=== PATIENT | male | born 1945 | race Caucasian/White ===

== ENCOUNTER 2018-04-16 14:19 | Inpatient (IN) | payer MEDICARE, OTHER ==
[2018-04-16 14:32] LABS: ADD MAN DIFF? NO
[2018-04-16 14:39] LABS: BASOPHILS % 0.4 % (0.0-2.0); EOSINOPHILS # 0.1 10^3/ul (0.0-0.5); HEMATOCRIT 37.2 % (42.0-52.0); HEMOGLOBIN 12.1 g/dl (14.0-18.0); LYMPHOCYTES # 0.8 10^3/ul (0.8-2.9); LYMPHOCYTES % 16.1 % (15.0-51.0); MEAN CORPUSCULAR HEMOGLOBIN 29.9 pg (29.0-33.0); MEAN CORPUSCULAR HGB CONC 32.5 g/dl (32.0-37.0); MEAN CORPUSCULAR VOLUME 91.9 fl (82.0-101.0); MEAN PLATELET VOLUME 10.4 fl (7.4-10.4); MONOCYTE # 0.4 10^3/ul (0.3-0.9); MONOCYTES % 7.8 % (0.0-11.0); NEUTROPHIL # 3.8 10^3/ul (1.6-7.5); NEUTROPHILS % 74.1 % (39.0-77.0); PLATELET COUNT 141 10^3/UL (140-415); RED BLOOD COUNT 4.05 10^6/ul (4.70-6.10); RED CELL DISTRIBUTION WIDTH 13.5 % (11.5-14.5)
[2018-04-16 14:39] LABS: WHITE BLOOD COUNT 5.1 10^3/ul (4.8-10.8)
[2018-04-16 14:59] LABS: ALANINE AMINOTRANSFERASE 24 IU/L (13-69); ALBUMIN 4.6 g/dl (3.3-4.9); ALBUMIN/GLOBULIN RATIO 1.43; ALKALINE PHOSPHATASE 91 IU/L (42-121); ANION GAP 17 (8-16); ASPARTATE AMINO TRANSFERASE 22 IU/L (15-46); BILIRUBIN,INDIRECT 1.5 mg/dl (0-1.1); BILIRUBIN,TOTAL 1.5 mg/dl (0.2-1.3); BLOOD UREA NITROGEN 18 mg/dl (7-20); CALCIUM 9.7 mg/dl (8.4-10.2); CARBON DIOXIDE 25 mmol/L (21-31); CHLORIDE 99 mmol/L (97-110); CREATININE 0.94 mg/dl (0.61-1.24); GLUCOSE 106 mg/dl (70-220); LIPASE 40 U/L (23-300); POTASSIUM 4.6 mmol/L (3.5-5.1); SODIUM 136 mmol/L (135-144); TOTAL PROTEIN 7.8 g/dl (6.1-8.1)
[2018-04-16] MEDS: ASPIRIN 81 MG TAB PO (14:59)
[2018-04-16 15:00] LABS: INR 0.94; PROTIME 12.7 Sec (11.9-14.9)
[2018-04-16 15:01] LABS: PARTIAL THROMBOPLASTIN TIME 28.6 Sec (25.0-35.0)
[2018-04-16 15:10] LABS: B-TYPE NATRIURETIC PEPTIDE 3990 PG/ML (0-125); TROPONIN-I < 0.010 ng/ml (0.000-0.120)
[2018-04-16] MEDS: FUROSEMIDE 40 MG INJ IV ×2 (16:26→21:00)
[2018-04-16] MEDS: OXYCODONE/ACETAMINOPHEN (5/325) TAB PO (16:27)
[2018-04-16] MEDS ORDERED: NACL 0.9% 3 ML SYG IV (19:00)
[2018-04-16] MEDS ORDERED: DOCUSATE SODIUM 100 MG CAP PO (19:00)
[2018-04-16] MEDS ORDERED: MAGNESIUM HYDROXIDE 30ML CUP PO (19:00)
[2018-04-16] MEDS ORDERED: ONDANSETRON 4 MG INJ IV (19:00)
[2018-04-16] MEDS: oxyCODONE 15 MG TAB PO (20:37)
[2018-04-16] MEDS: CARBIDOPA/LEVODOPA (25/100) TAB PO (20:38)
[2018-04-16] MEDS: MAGNESIUM OXIDE 400 MG TAB PO (20:38)
[2018-04-16] MEDS: NITROGLYCERIN (SL) 0.4 MG TAB SL (20:50)
[2018-04-16] MEDS: morphine 2 MG INJ IV (21:01)
[2018-04-16] MEDS: LORAZEPAM 2 MG INJ IV (22:50)
[2018-04-17] MEDS: morphine 2 MG INJ IV ×4 (00:53→14:31)
[2018-04-17 01:53] LABS: TROPONIN-I < 0.010 ng/ml (0.000-0.120)
[2018-04-17] MEDS: oxyCODONE 15 MG TAB PO ×4 (02:41→22:08)
[2018-04-17] MEDS: PANTOPRAZOLE (EC) 40 MG TAB PO (06:28)
[2018-04-17] MEDS: FUROSEMIDE 40 MG INJ IV ×2 (06:30→17:52)
[2018-04-17] MEDS ORDERED: PANTOPRAZOLE (EC) 40 MG TAB PO (07:00)
[2018-04-17] MEDS: FERROUS SULFATE (EC) 325 MG TAB PO (09:02)
[2018-04-17] MEDS: MAGNESIUM OXIDE 400 MG TAB PO ×2 (09:02→20:33)
[2018-04-17] MEDS: CARBIDOPA/LEVODOPA (25/100) TAB PO ×3 (09:02→20:33)
[2018-04-17] MEDS: ESCITALOPRAM 10 MG TAB PO (09:03)
[2018-04-17] MEDS: METOPROLOL (XL) 25 MG TAB PO (09:03)
[2018-04-17] MEDS: ENOXAPARIN 40 MG/0.4 ML SYG SC (09:10)
[2018-04-17 09:18] LABS: ADD MAN DIFF? NO
[2018-04-17 09:21] LABS: WHITE BLOOD COUNT 4.4 10^3/ul (4.8-10.8)
[2018-04-17 09:21] LABS: BASOPHILS % 0.7 % (0.0-2.0); EOSINOPHILS # 0.1 10^3/ul (0.0-0.5); EOSINOPHILS % 2.7 % (0.0-7.0); HEMATOCRIT 36.9 % (42.0-52.0); HEMOGLOBIN 11.9 g/dl (14.0-18.0); LYMPHOCYTES # 1.3 10^3/ul (0.8-2.9); LYMPHOCYTES % 28.9 % (15.0-51.0); MEAN CORPUSCULAR HEMOGLOBIN 29.5 pg (29.0-33.0); MEAN CORPUSCULAR HGB CONC 32.2 g/dl (32.0-37.0); MEAN CORPUSCULAR VOLUME 91.3 fl (82.0-101.0); MEAN PLATELET VOLUME 10.8 fl (7.4-10.4); MONOCYTE # 0.6 10^3/ul (0.3-0.9); NEUTROPHIL # 2.4 10^3/ul (1.6-7.5); NEUTROPHILS % 54.2 % (39.0-77.0); PLATELET COUNT 143 10^3/UL (140-415); RED BLOOD COUNT 4.04 10^6/ul (4.70-6.10); RED CELL DISTRIBUTION WIDTH 13.5 % (11.5-14.5)
[2018-04-17 09:46] LABS: ALANINE AMINOTRANSFERASE 18 IU/L (13-69); ALBUMIN 4.6 g/dl (3.3-4.9); ALBUMIN/GLOBULIN RATIO 1.76; ALKALINE PHOSPHATASE 81 IU/L (42-121); ANION GAP 13 (8-16); ASPARTATE AMINO TRANSFERASE 20 IU/L (15-46); BILIRUBIN,INDIRECT 1.3 mg/dl (0-1.1); BILIRUBIN,TOTAL 1.3 mg/dl (0.2-1.3); BLOOD UREA NITROGEN 19 mg/dl (7-20); CALCIUM 9.7 mg/dl (8.4-10.2); CARBON DIOXIDE 31 mmol/L (21-31); CHLORIDE 98 mmol/L (97-110); CREATININE 0.96 mg/dl (0.61-1.24); GLUCOSE 90 mg/dl (70-220); POTASSIUM 4.3 mmol/L (3.5-5.1); SODIUM 138 mmol/L (135-144); TOTAL PROTEIN 7.2 g/dl (6.1-8.1)
[2018-04-17 09:51] LABS: HEMOGLOBIN A1C 5.4 % (0-5.9)
[2018-04-17 09:56] LABS: TROPONIN-I < 0.010 ng/ml (0.000-0.120)
[2018-04-17] MEDS: POTASSIUM CHLORIDE (SR) 10 MEQ TAB PO (12:21)
[2018-04-17] MEDS: NITROGLYCERIN (SL) 0.4 MG TAB SL (12:55)
[2018-04-17] MEDS: morphine LIQ (10 MG/5 ML) CUP PO ×2 (18:27→20:33)
[2018-04-17] MEDS: ZOLPIDEM 5 MG TAB PO (22:07)
[2018-04-18] MEDS: LORAZEPAM 2 MG INJ IV ×2 (01:31→22:36)
[2018-04-18] MEDS: oxyCODONE 15 MG TAB PO ×3 (05:05→18:08)
[2018-04-18] MEDS: PANTOPRAZOLE (EC) 40 MG TAB PO (05:30)
[2018-04-18] MEDS: FUROSEMIDE 40 MG INJ IV ×2 (05:31→18:00)
[2018-04-18] MEDS: ESCITALOPRAM 10 MG TAB PO (08:26)
[2018-04-18] MEDS: FERROUS SULFATE (EC) 325 MG TAB PO (08:26)
[2018-04-18] MEDS: CARBIDOPA/LEVODOPA (25/100) TAB PO ×3 (08:26→20:22)
[2018-04-18] MEDS: morphine LIQ (10 MG/5 ML) CUP PO ×5 (08:26→21:11)
[2018-04-18] MEDS: MAGNESIUM OXIDE 400 MG TAB PO ×2 (08:26→20:22)
[2018-04-18] MEDS: POTASSIUM CHLORIDE (SR) 10 MEQ TAB PO (08:27)
[2018-04-18] MEDS: METOPROLOL (XL) 25 MG TAB PO (08:28)
[2018-04-18] MEDS: ENOXAPARIN 40 MG/0.4 ML SYG SC (08:33)
[2018-04-18] MEDS: NITROGLYCERIN (SL) 0.4 MG TAB SL ×2 (14:09→21:40)
[2018-04-18] MEDS: ASPIRIN 81 MG TAB PO (15:48)
[2018-04-19] MEDS: oxyCODONE 15 MG TAB PO ×3 (00:27→14:03)
[2018-04-19] MEDS: ZOLPIDEM 5 MG TAB PO (01:48)
[2018-04-19] MEDS: PANTOPRAZOLE (EC) 40 MG TAB PO (05:37)
[2018-04-19] MEDS: FUROSEMIDE 40 MG INJ IV (06:00)
[2018-04-19] MEDS: morphine LIQ (10 MG/5 ML) CUP PO ×3 (06:06→15:28)
[2018-04-19] MEDS: ACETAMINOPHEN 325 MG TAB PO ×2 (06:20→12:23)
[2018-04-19] MEDS: MAGNESIUM OXIDE 400 MG TAB PO (09:02)
[2018-04-19] MEDS: ESCITALOPRAM 10 MG TAB PO (09:02)
[2018-04-19] MEDS: FERROUS SULFATE (EC) 325 MG TAB PO (09:03)
[2018-04-19] MEDS: ASPIRIN 81 MG TAB PO (09:03)
[2018-04-19] MEDS: POTASSIUM CHLORIDE (SR) 10 MEQ TAB PO (09:03)
[2018-04-19] MEDS: CARBIDOPA/LEVODOPA (25/100) TAB PO ×2 (09:03→14:05)
[2018-04-19] MEDS: ENOXAPARIN 40 MG/0.4 ML SYG SC (09:03)
[2018-04-19] MEDS: METOPROLOL (XL) 25 MG TAB PO (09:03)
== END 2018-04-19 17:45 | DRG 313 ==
LOC: E/R 14:19 → TEL 17:38
DX: R07.89 Other chest pain (principal); I50.31 Acute diastolic (congestive) heart failure; I11.0 Hypertensive heart disease with heart failure; I25.2 Old myocardial infarction; Z95.5 Presence of coronary angioplasty implant and graft; Z95.1 Presence of aortocoronary bypass graft; G20 Parkinson's disease; G62.9 Polyneuropathy, unspecified; Z95.0 Presence of cardiac pacemaker; I48.91 Unspecified atrial fibrillation; E66.9 Obesity, unspecified; Z68.32 Body mass index [BMI] 32.0-32.9, adult
CPT/HCPCS: 71045; 80053; 83036; 83690; 83880; 84443; 84484; 85025; 85610; 85730; 93005; 93970; 96374; 99285-25

== ENCOUNTER 2018-06-05 12:59 | Emergency (ER) | payer MEDICARE, OTHER ==
[2018-06-05] MEDS: NITROGLYCERIN 2% 1 GM OINT PKT TD (13:17)
[2018-06-05 13:23] LABS: ADD MAN DIFF? NO
[2018-06-05 13:25] LABS: WHITE BLOOD COUNT 6.1 10^3/ul (4.8-10.8)
[2018-06-05 13:25] LABS: ABNORMAL IP MESSAGE 1; BASOPHILS % 0.2 % (0.0-2.0); HEMATOCRIT 41.9 % (42.0-52.0); HEMOGLOBIN 14.2 g/dl (14.0-18.0); LYMPHOCYTES # 0.5 10^3/ul (0.8-2.9); LYMPHOCYTES % 7.4 % (15.0-51.0); MEAN CORPUSCULAR HEMOGLOBIN 29.8 pg (29.0-33.0); MEAN CORPUSCULAR HGB CONC 33.9 g/dl (32.0-37.0); MEAN CORPUSCULAR VOLUME 87.8 fl (82.0-101.0); MEAN PLATELET VOLUME 9.8 fl (7.4-10.4); MONOCYTES % 0.7 % (0.0-11.0); NEUTROPHIL # 5.5 10^3/ul (1.6-7.5); NEUTROPHILS % 91.4 % (39.0-77.0); PLATELET COUNT 174 10^3/UL (140-415); POSITIVE DIFF @See below; RED BLOOD COUNT 4.77 10^6/ul (4.70-6.10); RED CELL DISTRIBUTION WIDTH 12.4 % (11.5-14.5)
[2018-06-05 13:52] LABS: ANION GAP 15 (8-16); CARBON DIOXIDE 23 mmol/L (21-31); CHLORIDE 102 mmol/L (97-110); GLUCOSE 155 mg/dl (70-220); POTASSIUM 4.3 mmol/L (3.5-5.1); SODIUM 136 mmol/L (135-144)
[2018-06-05] MEDS: NITROGLYCERIN (SL) 0.4 MG TAB SL (13:52)
[2018-06-05 14:03] LABS: TROPONIN-I < 0.012 ng/ml (0.000-0.120)
[2018-06-05 14:04] LABS: BLOOD UREA NITROGEN 15 mg/dl (7-20); CREATININE 0.83 mg/dl (0.61-1.24)
[2018-06-05] MEDS: KETOROLAC 30 MG INJ IV (14:04)
== END 2018-06-05 18:34 | disposition home or self-care (01) ==
LOC: E/R 12:59
DX: R07.9 Chest pain, unspecified (principal); I10 Essential (primary) hypertension; E11.9 Type 2 diabetes mellitus without complications; I50.9 Heart failure, unspecified; Z95.1 Presence of aortocoronary bypass graft
CPT/HCPCS: 71045; 80048; 84484; 85025; 93005; 96374; 99285-25

== ENCOUNTER 2018-06-06 07:23 | Emergency (ER) | payer MEDICARE, OTHER ==
[2018-06-06] MEDS ORDERED: ONDANSETRON 4 MG INJ (07:36)
[2018-06-06] MEDS: ONDANSETRON 4 MG INJ IV (07:48)
[2018-06-06 07:49] LABS: ADD MAN DIFF? NO
[2018-06-06 07:51] LABS: WHITE BLOOD COUNT 14.4 10^3/ul (4.8-10.8)
[2018-06-06 07:51] LABS: BASOPHILS % 0.1 % (0.0-2.0); EOSINOPHILS % 0.1 % (0.0-7.0); HEMOGLOBIN 14.2 g/dl (14.0-18.0); LYMPHOCYTES # 1.2 10^3/ul (0.8-2.9); LYMPHOCYTES % 8.6 % (15.0-51.0); MEAN CORPUSCULAR HGB CONC 33.8 g/dl (32.0-37.0); MEAN CORPUSCULAR VOLUME 85.9 fl (82.0-101.0); MEAN PLATELET VOLUME 10.1 fl (7.4-10.4); MONOCYTES % 6.9 % (0.0-11.0); NEUTROPHILS % 83.7 % (39.0-77.0); PLATELET COUNT 202 10^3/UL (140-415); RED BLOOD COUNT 4.89 10^6/ul (4.70-6.10); RED CELL DISTRIBUTION WIDTH 12.8 % (11.5-14.5)
[2018-06-06] MEDS: NITROGLYCERIN 2% 1 GM OINT PKT TD (07:52)
[2018-06-06 08:15] LABS: ANION GAP 21 (8-16); BLOOD UREA NITROGEN 26 mg/dl (7-20); CALCIUM 10.4 mg/dl (8.4-10.2); CARBON DIOXIDE 20 mmol/L (21-31); CHLORIDE 101 mmol/L (97-110); GLUCOSE 172 mg/dl (70-220); POTASSIUM 4.5 mmol/L (3.5-5.1); SODIUM 137 mmol/L (135-144)
[2018-06-06 08:27] LABS: TROPONIN-I < 0.012 ng/ml (0.000-0.120)
[2018-06-06] MEDS: HYDROCODONE/APAP (10/325) TAB PO ×2 (08:32→12:24)
[2018-06-06 12:07] LABS: TROPONIN-I < 0.012 ng/ml (0.000-0.120)
== END 2018-06-06 12:59 | disposition home or self-care (01) ==
LOC: E/R 07:23
DX: R07.9 Chest pain, unspecified (principal); R40.2142 Coma scale, eyes open, spontaneous, at arrival to emergency department; R40.2362 Coma scale, best motor response, obeys commands, at arrival to emergency department; G89.29 Other chronic pain; I50.9 Heart failure, unspecified; Z95.1 Presence of aortocoronary bypass graft
CPT/HCPCS: 36415; 71045; 80048; 84484; 85025; 93005; 96374; 99285-25

== ENCOUNTER 2018-06-11 09:47 | Emergency (ER) | payer MEDICARE, OTHER ==
[2018-06-11 10:06] LABS: ADD MAN DIFF? NO
[2018-06-11 10:09] LABS: BASOPHILS % 0.4 % (0.0-2.0); EOSINOPHILS # 0.2 10^3/ul (0.0-0.5); EOSINOPHILS % 4.3 % (0.0-7.0); HEMOGLOBIN 12.4 g/dl (14.0-18.0); LYMPHOCYTES # 1.3 10^3/ul (0.8-2.9); LYMPHOCYTES % 26.2 % (15.0-51.0); MEAN CORPUSCULAR HEMOGLOBIN 29.8 pg (29.0-33.0); MEAN CORPUSCULAR HGB CONC 32.6 g/dl (32.0-37.0); MEAN CORPUSCULAR VOLUME 91.3 fl (82.0-101.0); MEAN PLATELET VOLUME 10.4 fl (7.4-10.4); MONOCYTE # 0.5 10^3/ul (0.3-0.9); MONOCYTES % 9.2 % (0.0-11.0); NEUTROPHIL # 2.9 10^3/ul (1.6-7.5); NEUTROPHILS % 59.5 % (39.0-77.0); PLATELET COUNT 135 10^3/UL (140-415); RED BLOOD COUNT 4.16 10^6/ul (4.70-6.10); RED CELL DISTRIBUTION WIDTH 12.8 % (11.5-14.5)
[2018-06-11 10:09] LABS: WHITE BLOOD COUNT 4.9 10^3/ul (4.8-10.8)
[2018-06-11 10:27] LABS: ANION GAP 15 (8-16); BLOOD UREA NITROGEN 16 mg/dl (7-20); CALCIUM 9.2 mg/dl (8.4-10.2); CARBON DIOXIDE 21 mmol/L (21-31); CHLORIDE 104 mmol/L (97-110); CREATININE 0.79 mg/dl (0.61-1.24); GLUCOSE 107 mg/dl (70-220); POTASSIUM 4.4 mmol/L (3.5-5.1); SODIUM 136 mmol/L (135-144)
[2018-06-11 10:40] LABS: TROPONIN-I < 0.012 ng/ml (0.000-0.120)
== END 2018-06-11 14:40 | disposition home or self-care (01) ==
LOC: E/R 09:47
DX: R07.89 Other chest pain (principal); G89.29 Other chronic pain; I50.9 Heart failure, unspecified; Z95.1 Presence of aortocoronary bypass graft
CPT/HCPCS: 36415; 71045; 80048; 84484; 85025; 93005; 99285-25

== ENCOUNTER 2018-06-11 13:36 | Emergency (ER) | payer MEDICARE, OTHER ==
[2018-06-11] MEDS ORDERED: IBUPROFEN 200 MG TAB (13:54)
[2018-06-11] MEDS: NICARDipine HCL 30 MG CAPSULE PO (13:57)
== END 2018-06-11 14:56 | disposition home or self-care (01) ==
LOC: E/R 14:56
DX: I10 Essential (primary) hypertension (principal); I50.9 Heart failure, unspecified; Z95.1 Presence of aortocoronary bypass graft
CPT/HCPCS: 99283

== ENCOUNTER 2018-06-16 00:14 | Emergency (ER) | payer MEDICARE, OTHER | END 2018-06-16 00:45 | disposition home or self-care (01) | LOC: E/R 00:14 | DX: G89.4 Chronic pain syndrome (principal); I50.9 Heart failure, unspecified; Z95.1 Presence of aortocoronary bypass graft | CPT/HCPCS: 99283 ==

== ENCOUNTER 2018-07-09 19:53 | Emergency (ER) | payer MEDICARE, OTHER ==
[2018-07-09] MEDS: ASPIRIN 81 MG TAB PO (20:15)
[2018-07-09 20:41] LABS: ADD MAN DIFF? NO
[2018-07-09 20:47] LABS: WHITE BLOOD COUNT 4.8 10^3/ul (4.8-10.8)
[2018-07-09 20:47] LABS: BASOPHILS % 0.2 % (0.0-2.0); EOSINOPHILS # 0.1 10^3/ul (0.0-0.5); EOSINOPHILS % 2.1 % (0.0-7.0); HEMATOCRIT 34.3 % (42.0-52.0); HEMOGLOBIN 11.3 g/dl (14.0-18.0); LYMPHOCYTES # 1.1 10^3/ul (0.8-2.9); LYMPHOCYTES % 22.4 % (15.0-51.0); MEAN CORPUSCULAR HEMOGLOBIN 29.7 pg (29.0-33.0); MEAN CORPUSCULAR HGB CONC 32.9 g/dl (32.0-37.0); MEAN PLATELET VOLUME 10.1 fl (7.4-10.4); MONOCYTE # 0.4 10^3/ul (0.3-0.9); MONOCYTES % 8.4 % (0.0-11.0); NEUTROPHIL # 3.2 10^3/ul (1.6-7.5); NEUTROPHILS % 66.5 % (39.0-77.0); PLATELET COUNT 155 10^3/UL (140-415); RED BLOOD COUNT 3.81 10^6/ul (4.70-6.10); RED CELL DISTRIBUTION WIDTH 13.2 % (11.5-14.5)
[2018-07-09 21:03] LABS: ANION GAP 13 (8-16); BLOOD UREA NITROGEN 16 mg/dl (7-20); CALCIUM 9.3 mg/dl (8.4-10.2); CARBON DIOXIDE 26 mmol/L (21-31); CHLORIDE 100 mmol/L (97-110); CREATININE 0.92 mg/dl (0.61-1.24); GLUCOSE 140 mg/dl (70-220); POTASSIUM 4.4 mmol/L (3.5-5.1); SODIUM 135 mmol/L (135-144)
[2018-07-09 21:15] LABS: B-TYPE NATRIURETIC PEPTIDE 776 PG/ML (0-125); TROPONIN-I < 0.012 ng/ml (0.000-0.120)
== END 2018-07-09 22:39 | disposition home or self-care (01) ==
LOC: E/R 22:39
DX: R07.2 Precordial pain (principal); I50.9 Heart failure, unspecified; R40.2142 Coma scale, eyes open, spontaneous, at arrival to emergency department; R40.2242 Coma scale, best verbal response, confused conversation, at arrival to emergency department; R40.2362 Coma scale, best motor response, obeys commands, at arrival to emergency department; Z95.1 Presence of aortocoronary bypass graft
CPT/HCPCS: 36415; 71045; 80048; 83880; 84484; 85025; 93005; 99285-25